=== PATIENT | female | born 1970 ===

== ENCOUNTER → 2023-02-21 | Outpatient (CLI) | payer OTHER ==
--- NOTE | 2023-02-28 05:38 | MR ---
EXAMINATION TYPE: MR elbow LT wo con DATE OF EXAM: 02/21/2023 COMPARISON: NONE HISTORY: 52-year-old female R22.32, mass of left elbow. Palpable mass, posterior left elbow. TECHNIQUE: Multiplanar, multisequence images of the left elbow were obtained without IV contrast. FINDINGS: Palpable marker placed overlying the 9 x 5 mm T2 hyperintense and T1 low signal intensity oval nodule localized to the subcutaneous adipose layer just proximal to the olecranon. This does not represent distention of the olecranon bursa. The radiocapitellar and ulnar trochlear joints appear intact. No significant joint effusion. The triceps insertion is intact. There may be a small intrasubstance tear at the insertion of the distal biceps tendon, refer to axial series 301 image 7. There is a small intrasubstance tear measuring 3 x 4 mm at the common extensor tendon origin. Underly ing RCL appears intact. The common flexor tendon origin pronator mass appears intact. Underlying UCL is intact. No other significant soft tissue abnormality seen. The brachial neurovascular bundle appears satisfac tory as does the ulnar nerve along the sulcus ulnaris. IMPRESSION: 1. Underlying the patient's palpable marker, there is a 9 x 5 mm T2 bright and T1 low signal oval nod ule in the subcutaneous adipose layer just above the olecranon. There is no evidence for an olecranon bursitis. The etiology is unclear. Some type of mesenchymal tumor or nerve sheath tumor is possible. Recommend ultrasound evaluation to attempt characterization as to if this is cystic or solid. Consid er surgical evaluation especially if there is growth. 2. Small intrasubstance tear at the insertion of the distal biceps tendon. Additional small intrasubs tance tear measuring 3 x 4 mm at the common extensor tendon origin.
== END | disposition home or self-care (01) ==
LOC: RADMRIMAIN 05:51
PROVIDERS: ATTEND Family Medicine
DX: M75.112 Incomplete rotator cuff tear or rupture of left shoulder, not specified as traumatic (principal); R22.32 Localized swelling, mass and lump, left upper limb; L98.8 Other specified disorders of the skin and subcutaneous tissue

== ENCOUNTER → 2023-03-23 | Outpatient (CLI) | payer OTHER ==
--- NOTE | 2023-03-25 08:34 | MM ---
Reason for Exam: Screening (asymptomatic). Last mammogram was performed 2 year(s) and 10 month(s) ago. Patient History: Menarche at age 7. First Full-Term at age 18. Left ovary removed at age 46. Right ovary removed at age 46. Hysterectomy at age 46. Postmenopausal. Risk Values: Hope 5 year model risk: 1.2%. NCI Lifetime model risk: 8.1%. Prior Study Comparison: 07/18/2012 Bilateral Screening Mammogram, [facility]. 10/21/2014 Bilateral Screening Mammogram, [facility]. 08/19/2016 Bilateral Screening Mammogram, [facility]. 05/05/2020 Bilateral Screening Mammogram, [facility]. Tissue Density: The breast tissue is heterogeneously dense. This may lower the sensitivity of mammography. Findings: Analyzed By CAD. There is no suspicious group of microcalcifications or new suspicious mass in either breast. Overall Assessment: Negative, BI-RAD 1 Management: Screening Mammogram of both breasts in 1 year. . Patient should continue monthly self-breast exams. A clinical breast exam by your physician is recommended on an annual basis. This exam should not preclude additional follow-up of suspicious palpable abnormalities. Note on Hope scores and lifetime risk: 1. A Hope score greater than 3% is considered moderate risk. If this is the case, consider specialist referral to assess eligibility for a risk reducing agent. 2. If overall lifetime risk for the development of breast cancer is 20% or higher, the patient may qualify for future screening with alternating mammogram and breast MRI. Electronically signed and approved by: Pietro Anglin M.D. Radiologis
== END | disposition home or self-care (01) ==
LOC: RADMAMWWP 16:59
PROVIDERS: ATTEND Family Medicine
DX: Z12.31 Encounter for screening mammogram for malignant neoplasm of breast (principal); Z78.0 Asymptomatic menopausal state
CPT/HCPCS: 77063; 77067

== ENCOUNTER → 2023-04-12 | Outpatient (CLI) | payer OTHER ==
[2023-04-12 09:36] LABS: Basophils % (A) 1 %; Eosinophils # (A) 0.3 k/uL (0-0.7); Eosinophils % (A) 5 %; HCT 40.7 % (34.0-46.0); Lymphocytes # (A) 1.6 k/uL (1.0-4.8); Lymphocytes % (A) 29 %; MCH 32.2 pg (25.0-35.0); MCHC 34.5 g/dL (31.0-37.0); MCV 93.3 fL (80.0-100.0); Monocytes # (A) 0.3 k/uL (0-1.0); Monocytes % (A) 6 %; Neutrophils # (A) 3.2 k/uL (1.3-7.7); Neutrophils % (A) 58 %; Platelet Count 219 k/uL (150-450); RBC 4.36 m/uL (3.80-5.40); RDW 12.1 % (11.5-15.5); WBC 5.5 k/uL (3.8-10.6)
[2023-04-12 09:55] LABS: African American GFR (CKD) 74 (>60 ml/min/1.73 sqM); Anion Gap 11 mmol/L; Blood Urea Nitrogen 19 mg/dL (7-17); Calcium 9.5 mg/dL (8.4-10.2); Carbon Dioxide 28 mmol/L (22-30); Chloride 102 mmol/L (98-107); Glucose 102 mg/dL (74-99); Non-African American GFR(CKD) 64 (>60 ml/min/1.73 sqM); Potassium 3.8 mmol/L (3.5-5.1); Sodium 141 mmol/L (137-145)
== END | disposition home or self-care (01) ==
LOC: PAT 08:48
PROVIDERS: ATTEND Orthopaedic Surgery Hand Surgery
DX: Z01.812 Encounter for preprocedural laboratory examination (principal); R22.32 Localized swelling, mass and lump, left upper limb
CPT/HCPCS: 36415; 80048; 85025

== ENCOUNTER 2023-04-20 09:14 | Day surgery (SDC) | payer OTHER ==
[2023-04-14 13:10] VITALS: BMI 32.5
--- NOTE | 2023-04-19 12:27 | P.HPOR ---
History of Present Illness H&P Date: 04/19/23 Subjective: This is a 53 year old female that presents today for initial evaluation regarding a 4 year history of a painful lump/mass located on the posterior portion of the elbow. She notes pain and a burning sensation directly over the mass. She denies any injury or inciting event. She states the pain and become worse over the last several months and recently underwent an MRI. Her symptoms are often worse at night time. Physical Examination: LUE: AIN/PIN/Radial/Ulnar/Median motor intact. Radial/Ulnar/Median SILT. 2+/4 Radial/Ulnar pulses palpated. 5/5 APB, 5/5 FDI. Negative Finkelsteins, negative CMC grind, negative Durkan's compression. Round mobile mass palpable in subcutaneous tissues roughly 5cm proximal to posterior olecranon. Elbow ROM 0- 130. Imaging: X-Rays of the left elbow 3V taken in office today demonstrate no acute fracture/ dislocation. Posterior olecranon osteophyte present. MRI of the left elbow reviewed from 02/21/23 demonstrates 9x5mm round mass, bright on T2 dark and T1 in the subcutaneous tissue of the posterior elbow. Impression: 1.) Left elbow posterior soft tissue mass 9x5mm Plan: Diagnosis and treatment options were discussed with the patient. She states the mass is becoming more symptomatic and she is noticing her symptoms on a daily basis now and would like to go forward with left elbow soft tissue mass excision. Risks and benefits of surgery including bleeding, infection, damage to surrounding tissue, need for further surgery, residual numbness were discussed and the patient wished to go forward with surgery.The patient was agreeable with this plan. -Kiko Garza DO Orthopedic Hand/Upper Extremity Surgeon Past Medical History Additional Past Medical History / Comment(s): MASS TO LT ELBOW History of Any Multi-Drug Resistant Organisms: None Reported Past Surgical History: Section, Hysterectomy, Tonsillectomy Additional Past Surgical History / Comment(s): C-SEC X 4. LAPAROSCOPY. COLONOSCOPY Past Anesthesia/Blood Transfusion Reactions: Postoperative Nausea & Vomiting (PONV) Smoking Status: Never smoker - Past Family History Daughter(s) Family Medical History: Deep Vein Thrombosis (DVT) Additional Family Medical History / Comment(s): WITH Medications and Allergies Home Medications Medication Instructions Recorded Confirmed Type Aspirin 325 mg PO DAILY 04/14/23 04/14/23 History Allergies Allergy/AdvReac Type Severity Reaction Status Date / Time latex Allergy Rash/Hives Verified 04/14/23 12:47 prochlorperazine AdvReac MUSCLES Verified 04/14/23 12:47 [From Compazine] SEIZE UP Physical Examination Osteopathic Statement: *. No significant issues noted on an osteopathic structural exam other than those noted in the History and Physical/Consult.
[~2023-04-20 09:14] MED LIST: HYDROmorphone 0.5 MG/0.5 ML SYRINGE IVP PRN; LACTATED RINGERS 1,000 ML IV SCH; ONDANSETRON 4 MG/2 ML VIAL IVP ONE
[2023-04-20] MEDS ORDERED: SCOPOLAMINE 1 MG/72 HR PATCH TRANSDERM ONE (09:25)
[2023-04-20] MEDS ORDERED: DEXAMETHASONE SOD PHOSPHATE 4 MG/ML 1 ML VIAL IVP ONE (09:25)
[2023-04-20] MEDS ORDERED: BUPIVACAINE (PF) 0.5% 30 ML VIAL SQ ONE ×2 (10:08→10:28)
[2023-04-20] MEDS ORDERED: LIDOCAINE 1% INJ 10MG/ML (20 ML MDV) SQ ONE ×2 (10:09→10:28)
[2023-04-20] MEDS ORDERED: PROPOFOL 10 MG/ML 20 ML VIAL IV ONE (10:10)
[2023-04-20] MEDS ORDERED: ONDANSETRON 4 MG/2 ML VIAL ONE (10:10)
[2023-04-20] MEDS ORDERED: fentaNYL (PF) 50 MCG/ML 2 ML AMP ONE (10:10)
[2023-04-20] MEDS ORDERED: MIDAZOLAM 2 MG/2 ML VIAL ONE (10:10)
[2023-04-20] MEDS ORDERED: LIDOCAINE 1% INJ 10MG/ML (20 ML MDV) ONE (10:10)
--- NOTE | 2023-04-20 10:35 | P.OP ---
Date of Procedure: 04/20/23 Preoperative Diagnosis: 1.) Left elbow soft tissue mass Postoperative Diagnosis: 1.) Left elbow soft tissue mass Procedure(s) Performed: 1.) Left elbow soft tissue mass excision 3x3cm, subcutaneous. Anesthesia: MARYA Surgeon: Kiko Garza Hockey Scout #1: Carrillo Flores Estimated Blood Loss (ml): 0 Pathology: other (Left elbow soft tissue mass) Condition: stable Disposition: PACU Description of Procedure: This is a 53 year old female who presents today for left elbow soft tissue mass excision. Risks and benefits of surgery were discussed with the patient including bleeding, damage to surrounding tissue, infection, recurrence, need for further surgery as well as risks of anesthesia including pulmonary embolism and even and the patient wished to proceed with surgical intervention. The patient was seen in the pre-operative area by myself. Consent and H&P were completed and updated. The correct extremity was marked in the pre-operative area by myself and all other questions were answered. Operative Narrative: The patient was brought to the operating room by the department of anesthesia. They remained on the portable stretcher and a rolling hand table was brought to the side of the operative extremity. Pre-operative time out was performed indicating the correct patient, procedure and laterality. All in the room agreed. Pre-operative antibiotics were given prior to skin incision. The patient was then drifted off to sleep by the department of anesthesia. A nonsterile tourniquet was then applied to the operative extremity and the left upper extremity was then prepped and draped in normal sterile fashion. The operative extremity was then held to gravity and tourniquet was inflated to 250mmHg. Longitudinal incision was made with a 15 blade scalpel over the posterior aspect of the elbow. Blunt dissection was taken down through subcutaneous tissues. A round white 3x3 cm mass was identified in the subcutaneous tissues superficial to the triceps tendon. The mass was excised in it's entirety and collected and sent for pathology evaluation. Skin closure was performed with interrupted 3-0 nylon suture in horizontal mattress fashion. 6cc's of 50:50 mixture of 0.5% bupivicaine and 1% lidocaine was injected into the subcutaneous tissues. Tourniquet was let down and the hand had immediate perfusion. Soft dressing was applied with adaptic, 4x4's, webril, and an derek wrap. The patient was then woken by the department of anesthesia and transferred to PACU in stable condition. Kiko Garza D.O. Orthopedic Hand/Upper Extremity Surgeon
[2023-04-20 10:47] VITALS: TEMP 96.7
[2023-04-20 11:05] VITALS: RESP 16
[2023-04-20 11:25] VITALS: PULSE 68
[2023-04-20 11:44] VITALS: BP 125/86
== END 2023-04-20 11:58 | disposition home or self-care (01) ==
LOC: OR 09:14
PROVIDERS: ATTEND Orthopaedic Surgery Hand Surgery
DX: D17.79 Benign lipomatous neoplasm of other sites (principal); Z83.2 Family history of diseases of the blood and blood-forming organs and certain disorders involving the immune mechanism; Z91.040 Latex allergy status; Z88.8 Allergy status to other drugs, medicaments and biological substances
CPT/HCPCS: 24071; 88305; 88342; 88341; J2250; J1100; J0690; J2405; J2001; J3010; J2704; J0665

== ENCOUNTER → 2023-10-20 | Outpatient (CLI) | payer OTHER ==
--- NOTE | 2023-10-20 07:37 | MM ---
Reason for Exam: Follow-up at short interval from prior study. Last screening mammogram was performed 7 month(s) ago. Indicated Problems: Large axillary lymph nodes of the right side (size 5) for 1 Month(s). Patient History: Menarche at age 7. First Full-Term at age 18. Left ovary removed at age 46. Right ovary removed at age 46. Hysterectomy at age 46. Postmenopausal. Risk Values: Hope 5 year model risk: 1.2%. NCI Lifetime model risk: 8.1%. Prior Study Comparison: 07/18/2012 Bilateral Screening Mammogram, [facility]. 08/19/2016 Bilateral Screening Mammogram, [facility]. 05/05/2020 Bilateral Screening Mammogram, [facility]. 03/23/2023 Bilateral MG 3D screening mammo w/cad, [facility]. Tissue Density: There are scattered areas of fibroglandular density. Findings: Analyzed By CAD. There is an asymmetric density particularly on the right remain unchanged. No persisting abnormality on 3-D images. The axilla appears unremarkable. No significant change from prior exams. Overall Assessment: Incomplete: need additional imaging evaluation, BI-RAD 0 Management: Diagnostic Breast Ultrasound of both breasts. Bilateral upper outer quadrant and axilla (right for the patient's axillary lump and left as ordered). Electronically signed and approved by: Tashia Newell M.D. Radiologist
--- NOTE | 2023-10-20 08:31 | USB ---
Reason for Exam: Clinical finding. Patient History: Menarche at age 7. First Full-Term at age 18. Left ovary removed at age 46. Right ovary removed at age 46. Hysterectomy at age 46. Postmenopausal. Risk Values: Hope 5 year model risk: 1.2%. NCI Lifetime model risk: 8.1%. Technique: Method: Targeted. Prior Study Comparison: 08/19/2016 Bilateral Screening Mammogram, [facility]. 05/05/2020 Bilateral Screening Mammogram, [facility]. 03/23/2023 Bilateral MG 3D screening mammo w/cad, [facility]. Findings: The upper outer quadrant of both breasts, the axilla of both breasts and the retroareolar of both breasts were scanned. Targeted ultrasound of the bilateral axilla and upper outer quadrants as well as the subareolar region. Right: At the patient's axillary palpable site located directly under a skin tag, there is a cystic lesion with debris measuring 9 x 7 x 3 mm which abuts the skin layer. Some surrounding hyperemia is noted. The patient informs the training development director that she had a lesion which has been removed multiple times here. Findings suggest remnant or recurrent sebaceous cyst. Consider dermatology evaluation. No other solid or cystic lesion or axillary lymphadenopathy. Left: No solid or cystic lesion or axillary lymphadenopathy. Overall Assessment: Benign, BI-RAD 2 Management: Screening Mammogram of both breasts in 1 year. Recommend dermatology referral for suspected remnant or recurrent sebaceous cyst at the patient's right axillary palpable site. A clinical breast exam by your physician is recommended on an annual basis and results should be correlated with mammographic findings. This exam should not preclude additional follow-up of suspicious palpable abnormalities. Results were given to the patient verbally at the time of exam. Electronically signed and approved by: Tashia Newell M.D. Radiologist
--- NOTE | 2023-10-20 16:59 | US ---
EXAMINATION TYPE: US thyroid st tissue head/neck DATE OF EXAM: 10/20/2023 COMPARISON: NONE CLINICAL INDICATION: Female, 53 years old with history of R59.0 ENLARGE LYMPH R92.30 DENSE E01.0 GOIT ER; Goiter. Patient has swelling within midline neck. GLAND SIZE: Right Lobe: 5.2 x 1.9 x 1.7 cm Overall Parenchyma: Slightly heterogeneous. Left Lobe: 5.0 x 1.4 x 1.3 cm Overall Parenchyma: Slightly heterogeneous. Isthmus Thickness: 0.4 cm at mid. NODULES RIGHT: # of nodules measured on right: 1 1. 0.8 X 0.6 x 0.8 cm, mid mid, solid or almost completely solid, hypoechoic nodule, which is talle r than wide, with smooth margins, without echogenic foci. Prior size: No prior LEFT: # of nodules measured on left: 0 ISTHMUS: # of nodules measured in the isthmus: 1 1. 3.5 X 2.9 x 2.2 cm solid or almost completely solid, very hypoechoic nodule, which is wider than tall, with smooth margins, with echogenic foci. Prior size: No prior Bilateral neck scanned, no evidence of lymphadenopathy. IMPRESSION: 1. 8 mm nodule in the right lobe of the thyroid gland T-rads 5. Suspicious nodule short-term follow-u p is recommended. 2. 3.5 cm nodule in the isthmus,T-rads 4, moderately suspicious. Given its size, fine-needle aspirati on is recommended 2016 ACR TI-RADS LEVEL: *Highest TI-RADS level nodule reported
== END | disposition home or self-care (01) ==
LOC: RADMAMWWP 06:57
PROVIDERS: ATTEND Family Medicine
DX: E04.2 Nontoxic multinodular goiter (principal); R92.323 Mammographic fibroglandular density, bilateral breasts; R59.0 Localized enlarged lymph nodes; Z78.0 Asymptomatic menopausal state
CPT/HCPCS: 76536; 77062; 77066

== ENCOUNTER 2023-11-07 12:14 | Day surgery (SDC) | payer OTHER ==
[2023-11-07] MEDS: ALPRAZolam 0.5 MG TAB PO PRN (12:56)
[2023-11-07 13:37] VITALS: RESP 16; TEMP 98
[2023-11-07 14:32] VITALS: BP 115/77; PULSE 78
--- NOTE | 2023-11-09 08:08 | US ---
ULTRASOUND GUIDED FNA THYROID BIOPSY: CLINICAL HISTORY: Isthmus nodule FINDINGS: The procedure was explained to the patient. The risks, complications, benefits and alternatives were discussed and any questions were answered. Informed consent was obtained. Patient was placed supin e on the ultrasound table and prepped and draped in the usual sterile fashion. Utilizing a 25 gauge needle, five passes were made into the requested isthmus nodule. Patient was stable throughout the procedure. Pathology is pending. All elements of maximal barrier technique were utilized. IMPRESSION: 1. Successful ultrasound guided FNA thyroid biopsy.
== END 2023-11-07 14:32 | disposition home or self-care (01) ==
LOC: RADPROMAIN 12:14
PROVIDERS: ATTEND Internal Medicine
DX: E04.1 Nontoxic single thyroid nodule (principal)
CPT/HCPCS: 10005; 88173; 88305

== ENCOUNTER → 2024-09-10 | Outpatient (CLI) | payer OTHER ==
--- NOTE | 2024-09-10 16:55 | US ---
EXAMINATION TYPE: US thyroid st tissue head/neck DATE OF EXAM: 09/10/2024 COMPARISON: NONE CLINICAL INDICATION: Female, 54 years old with history of R22.1 SWELL MASS LUMP, NECK Z85.850 PER HX THY CAN; Patient complains of bilateral submandibular neck swelling Right neck submandibular: multiple lymph nodes seen with largest measuring 1.9cm long axis. Left neck submandibular: multiple lymph nodes seen with largest measuring 1.0cm long axis. IMPRESSION: Benign-appearing subcentimeter on short axis lymph nodes are seen by technologist kayla whitley. No concerning mass or focal fluid collection. Consider repeat imaging if area of concern is fe lt to enlarge or become painful. [facility], , 09/10/2024 4:53 PM
== END | disposition home or self-care (01) ==
LOC: RADUSWWP 15:44
PROVIDERS: ATTEND Family Medicine
DX: R22.1 Localized swelling, mass and lump, neck (principal); Z85.850 Personal history of malignant neoplasm of thyroid
CPT/HCPCS: 76536